=== PATIENT | female | born 1965 | race Caucasian/White ===

== ENCOUNTER 2018-09-17 04:07 | Observation (INO) | payer OTHER ==
--- NOTE | 2018-09-17 04:39 | EDPHY ---
H & P Stated Complaint: chest pain Time Seen by Provider: 09/17/18 04:18 HPI/ROS: Chief Complaint: Chest pain HPI: 52-year-old woman with a history of coronary artery atherosclerosis based on CT heart scans is presenting with chest pain which woke her 3 and 0.5 hr prior to arrival. Patient states she has been waxing waning pain in her central chest radiating to her left side of her chest on morning. She has had similar episodes in the past. She had a negative stress test with Dr. Dias about 9 years ago. She has a strong family history of coronary artery disease and a father of sudden cardiac in his early 50s. She is currently pain-free. No nausea or vomiting. Pain is not pleuritic. No recent immobility. At worst is about a 7/10. ROS: 10 systems were reviewed and were negative except those elements noted in the HPI. PMH: Hyperlipidemia, coronary artery disease Social History: No smoking, no alcohol, no recreational drug use Family History: First-degree relatives with coronary artery disease at a young age Physical Exam: Gen: Awake, Alert, No Distress HEENT: Nose: no rhinorrhea Eyes: PERRLA, EOMI Mouth: Moist mucosa Neck: Supple, no JVD Chest: nontender, lungs clear to auscultation Heart: S1, S2 normal, no murmur Abd: Soft, non-tender, no guarding Back: no CVA tenderness, no midline tenderness Ext: no edema, non-tender Skin: no rash Neuro: CN II-XII intact, Sensation grossly intact, Strength 5/5 in bilateral upper and lower extremities - Personal History LMP (Females 10-55): Post Menopausal Current Tetanus Diphtheria and Acellular Pertussis (TDAP): Yes - Medical/Surgical History Hx Asthma: No Hx Chronic Respiratory Disease: No Hx Diabetes: No Hx Cardiac Disease: Yes Hx Renal Disease: No Hx Cirrhosis: No Hx Alcoholism: No Hx HIV/AIDS: No Hx Splenectomy or Spleen Trauma: No Other PMH: atleriosos sclerosis - Social History Smoking Status: Never smoked Constitutional: Initial Vital Signs Temperature (C) 36.5 C 09/17/18 04:11 Heart Rate 74 09/17/18 04:11 Respiratory Rate 20 09/17/18 04:11 Blood Pressure 154/93 H 09/17/18 04:11 O2 Sat (%) 99 12/10/18 04:11 O2 Delivery Mode Room Air Allergies/Adverse Reactions: No Known Allergies Allergy (Unverified 09/17/18 04:10) Home Medications: Medication Instructions Recorded Atorvastatin Calcium 09/17/18 Coq10 09/17/18 Medical Decision Making - Diagnostics EKG Interpretation: ECG time 4:22 a.m., sinus rhythm with a rate of 66, normal axis, normal intervals, no acute ST or T-wave changes. Impression: Normal ECG. ED Course/Re-evaluation: 52-year-old woman with a history of coronary atherosclerotic disease and family history of sudden cardiac presenting with chest pain this morning. Pain is resolved. ECG is normal. Troponin is 0. I have discussed with Dr. Daley , cardiology. He has recommended the patient be admitted for further evaluation and they will consult on her later today to discuss options for further evaluation. I have discussed with Dr. Aviva Castro, hospitalist. She will admit to her service for further evaluation. - Data Points Laboratory Results: Laboratory Results 09/17/18 04:40 09/17/18 04:40 09/17/18 09/17/18 09/17/18 04:43 04:40 04:40 WBC 4.85 10^3/uL 10^3/uL (3.80-9.50) RBC 4.84 10^6/uL 10^6/uL (4.18-5.33) Hgb 15.0 g/dL g/dL (12.6-16.3) Hct 42.3 % % (38.0-47.0) MCV 87.4 fL fL (81.5-99.8) MCH 31.0 pg pg (27.9-34.1) MCHC 35.5 g/dL g/dL (32.4-36.7) RDW 12.1 % % (11.5-15.2) Plt Count 172 10^3/uL 10^3/uL (150-400) MPV 9.4 fL fL (8.7-11.7) Neut % (Auto) 43.6 % % (39.3-74.2) Lymph % (Auto) 47.0 % H % (15.0-45.0) [place] % (Auto) 7.2 % % (4.5-13.0) Eos % (Auto) 1.4 % % (0.6-7.6) Baso % (Auto) 0.8 % % (0.3-1.7) Nucleat RBC Rel Count 0.0 % % (0.0-0.2) Absolute Neuts (auto) 2.11 10^3/uL 10^3/uL (1.70-6.50) Absolute Lymphs (auto) 2.28 10^3/uL 10^3/uL (1.00-3.00) Absolute Monos (auto) 0.35 10^3/uL 10^3/uL (0.30-0.80) Absolute Eos (auto) 0.07 10^3/uL 10^3/uL (0.03-0.40) Absolute Basos (auto) 0.04 10^3/uL 10^3/uL (0.02-0.10) Absolute Nucleated RBC 0.00 10^3/uL 10^3/uL (0-0.01) Immature Gran % 0.0 % % (0.0-1.1) Immature Gran # 0.00 10^3/uL 10^3/uL (0.00-0.10) Sodium 138 mEq/L mEq/L (135-145) Potassium 3.7 mEq/L mEq/L (3.5-5.2) Chloride 106 mEq/L mEq/L (97-110) Carbon Dioxide 24 mEq/l mEq/l (22-31) Anion Gap 8 mEq/L mEq/L (6-14) BUN 19 mg/dL mg/dL (7-23) Creatinine 0.7 mg/dL mg/dL (0.6-1.0) Estimated GFR > 60 Glucose 106 mg/dL H mg/dL (70-100) Calcium 9.1 mg/dL mg/dL (8.5-10.4) POC Troponin I 0.00 ng/mL ng/mL (0.00-0.08) Medications Given: Discontinued Medications Aspirin (Aspirin) 243 mg PO EDNOW ONE Stop: 09/17/18 05:44 Last Admin: 09/17/18 05:46 Dose: 243 mg Point of Care Test Results: Chemistry 09/17/18 04:43 POC Troponin I 0.00 ng/mL ng/mL (0.00-0.08) Departure - Departure Disposition: [facility] Inpatient Acute Clinical Impression: Chest pain Condition: Fair Referrals: Susi Roberto MD [Primary Care Provider] - As per Instructions
[2018-09-17 04:54] LABS: PLATELET COUNT 172 10^3/uL (150-400)
[2018-09-17] MEDS ORDERED: ASPIRIN 81 MG CHEWABLE TAB PO ONE (05:43)
[2018-09-17] MEDS ORDERED: NITROGLYCERIN 0.4 MG BTL SL PRN (06:01)
[2018-09-17] MEDS ORDERED: ONDANSETRON 4 MG/2 ML VIAL IVP PRN (06:01)
[2018-09-17] MEDS ORDERED: ACETAMINOPHEN 325 MG TAB PO PRN (06:01)
[2018-09-17] MEDS ORDERED: ONDANSETRON DISINTEGRATING 4 MG TAB PO PRN (06:01)
--- NOTE | 2018-09-17 06:44 | CPEKG ---
Test Reason : OPEN Blood Pressure : / mmHG Vent. Rate : 066 BPM Atrial Rate : 066 BPM P-R Int : 143 ms QRS Dur : 092 ms QT Int : 399 ms P-R-T Axes : 085 018 066 degrees QTc Int : 418 ms Sinus rhythm Confirmed by Miles Carl ([id number]) on 09/17/2018 6:44:16 AM Referred By: Confirmed By:Miles Carl
[2018-09-17] MEDS ORDERED: METOPROLOL TARTRATE 25 MG TAB PO ONE (06:57)
--- NOTE | 2018-09-17 07:04 | PDGENHP ---
History and Physical - Chief Complaint chest pain - History of Present Illness 52 yo female with h/o CAD by CT coronary artery imaging, prior hypertension hx with PIH, and family history of premature heart disease presents to ED with chest pain. She went for a walk/run with her partner yesterday and felt chest pressure and pain during exertion. This resolved with rest. She then awoke at 0100 this morning with recurrent chest pressure. She was able to fall back to sleep, but at 0300, the pain woke up her up again and was severe. She described this as a pressure and tightness, like someone was sitting on her chest. The pain radiated to her left arm, neck and left jaw. She felt nausea and SOB, but denied diaphoresis. This brought her to the ED and her pain is nearly resolved upon arrival. She is a non-smoker, no h/o diabetes. She takes atorvastatin due to her coronary plaque, but has had normal cholesterol in the past. She is not currently treated for hypertension. She is followed by Dr. Dias at [facility]. Prior workup has included a nuclear medicine stress test which was reportedly normal. In 05/2016, she had a low risk exercise treadmill stress test. In 06/2018, she had a CT coronary artery calcium score of 346, correlating with moderate non-occlusive CAD. In the ED, her initial troponin is negative. Her EKG is non-ischemic. History Information - Allergies/Home Medication List Allergies/Adverse Reactions: No Known Allergies Allergy (Unverified 09/17/18 04:10) Home Medications: Atorvastatin Calcium 09/17/18 [Last Taken Unknown] Coq10 09/17/18 [Last Taken Unknown] I have personally reviewed and updated: family history, medical history, social history, surgical history - Past Medical History coronary artery disease, hypertension - Surgical History Reports: no pertinent surgical hx - Family History Positive for: diabetes type II, father with history of CAD younger than 55, hypertension Additional family history: father of AK at age 51 - Social History Smoking Status: Never smoked Alcohol Use: None Drug Use: None Additional social history: She is active, does yoga. Review of Systems Review of Systems: ROS: 10pt was reviewed & negative except for what was stated in HPI & below Physical Exam Physical Exam: Temp Pulse Resp BP Pulse Ox 36.5 C 69 16 126/76 H 95 09/17/18 04:11 09/17/18 05:40 09/17/18 05:40 09/17/18 05:40 09/17/18 05:40 Constitutional: no apparent distress Eyes: PERRL Ears, Nose, Mouth, Throat: moist mucous membranes Cardiovascular: regular rate and rhythym, no murmur, rub, or gallop Respiratory: no respiratory distress, clear to auscultation Gastrointestinal: normoactive bowel sounds, soft, non-tender abdomen Skin: warm Musculoskeletal: full muscle strength Neurologic: AAOx3 Psychiatric: interacting appropriately Lab Data & Imaging Review 09/17/18 04:40 09/17/18 04:40 WBC 4.85 10^3/uL (3.80-9.50) 09/17/18 04:40 RBC 4.84 10^6/uL (4.18-5.33) 09/17/18 04:40 Hgb 15.0 g/dL (12.6-16.3) 09/17/18 04:40 Hct 42.3 % (38.0-47.0) 09/17/18 04:40 MCV 87.4 fL (81.5-99.8) 09/17/18 04:40 MCH 31.0 pg (27.9-34.1) 09/17/18 04:40 MCHC 35.5 g/dL (32.4-36.7) 09/17/18 04:40 RDW 12.1 % (11.5-15.2) 09/17/18 04:40 Plt Count 172 10^3/uL (150-400) 09/17/18 04:40 MPV 9.4 fL (8.7-11.7) 09/17/18 04:40 Neut % (Auto) 43.6 % (39.3-74.2) 09/17/18 04:40 Lymph % (Auto) 47.0 % (15.0-45.0) H 09/17/18 04:40 [place] % (Auto) 7.2 % (4.5-13.0) 09/17/18 04:40 Eos % (Auto) 1.4 % (0.6-7.6) 09/17/18 04:40 Baso % (Auto) 0.8 % (0.3-1.7) 09/17/18 04:40 Nucleat RBC Rel Count 0.0 % (0.0-0.2) 09/17/18 04:40 Absolute Neuts (auto) 2.11 10^3/uL (1.70-6.50) 09/17/18 04:40 Absolute Lymphs (auto) 2.28 10^3/uL (1.00-3.00) 09/17/18 04:40 Absolute Monos (auto) 0.35 10^3/uL (0.30-0.80) 09/17/18 04:40 Absolute Eos (auto) 0.07 10^3/uL (0.03-0.40) 09/17/18 04:40 Absolute Basos (auto) 0.04 10^3/uL (0.02-0.10) 09/17/18 04:40 Absolute Nucleated RBC 0.00 10^3/uL (0-0.01) 09/17/18 04:40 Immature Gran % 0.0 % (0.0-1.1) 09/17/18 04:40 Immature Gran # 0.00 10^3/uL (0.00-0.10) 09/17/18 04:40 Sodium 138 mEq/L (135-145) 09/17/18 04:40 Potassium 3.7 mEq/L (3.5-5.2) 09/17/18 04:40 Chloride 106 mEq/L (97-110) 09/17/18 04:40 Carbon Dioxide 24 mEq/l (22-31) 09/17/18 04:40 Anion Gap 8 mEq/L (6-14) 09/17/18 04:40 BUN 19 mg/dL (7-23) 09/17/18 04:40 Creatinine 0.7 mg/dL (0.6-1.0) 09/17/18 04:40 Estimated GFR > 60 09/17/18 04:40 Glucose 106 mg/dL (70-100) H 09/17/18 04:40 Calcium 9.1 mg/dL (8.5-10.4) 09/17/18 04:40 POC Troponin I 0.00 ng/mL (0.00-0.08) 09/17/18 04:43 Triglycerides 91 mg/dL (35-135) 09/17/18 05:30 Cholesterol 136 mg/dL (140-220) L 09/17/18 05:30 Cholesterol Risk Factr 0.4 (0.2-1.0) 09/17/18 05:30 LDL Cholesterol, Calc 65 mg/dL (80-100) L 09/17/18 05:30 LDL Risk Factor 0.5 (0.2-1.0) 09/17/18 05:30 VLDL Cholesterol 18 mg/dL (8-25) 09/17/18 05:30 Non-HDL Cholesterol 83 mg/dL (90-129) L 09/17/18 05:30 HDL Cholesterol 53 mg/dL (40-85) 09/17/18 05:30 LDL/HDL Ratio 1.22 RATIO (1.00-3.22) 09/17/18 05:30 Cholesterol/HDL Ratio 2.57 RATIO (1.00-4.44) 09/17/18 05:30 Visualized and Interpreted Chest x-ray results: Yes Chest X-Ray results: normal Visualized and Interpreted EKG results: Yes EKG Interpretation: Positive for: normal sinsus rhythm Assessment & Plan Assessment: Chest pain (Acute) - Some concern for unstable angina with symptoms occurring both with exertion and at rest. HEART score 4 based on concerning story, age and risk factors (father of AK age 51, h/o htn). Coronary artery calcium score 346 in 06/2018, suggesting moderate CAD is likely. Trop neg, ekg non- ischemic. She warrants inpt risk stratification. -trend trop -rpt ekg reviewed, no evolutionary changes -ASA, statin, BB -prn nitro, morphine for pain, currently pain free -will keep NPO as she may warrant angiogram, cardiology will consult to determine plan for risk stratification Full code Dispo - obs
[2018-09-17] MEDS ORDERED: ATORVASTATIN CALCIUM 40 MG TAB PO SCH (09:00)
[2018-09-17] MEDS ORDERED: TEMAZEPAM 15 MG CAP PO PRN (09:43)
[2018-09-17] MEDS ORDERED: ASPIRIN EC 325 MG TAB PO ONE (09:43)
[2018-09-17] MEDS ORDERED: DIAZEPAM 5 MG TAB PO ONE (09:43)
[2018-09-17] MEDS ORDERED: FAMOTIDINE 20 MG TAB PO ONE ×2 (09:43→14:43)
[2018-09-17] MEDS ORDERED: diphenhydrAMINE 25 MG CAP PO ONE (09:43)
--- NOTE | 2018-09-17 09:43 | PDPROPOC ---
Sedation Plan of Care Sedation Plan of Care: vital signs stable, mental status noted, patient educated of risks, benefits, alternatives, patient can tolerate sedation ASA Classification: ASA 2 Planned drugs: fentanyl, midazolam Mallampati Score: Class 1 Mallampati Reference Image: Patient passed 3-3-2 rule?: Yes
--- NOTE | 2018-09-17 09:47 | PDCARCONS ---
Cardiology Consult Reason for Consult: Chest pain Chief Complaint: Chest pain Requesting Physician: David History of Present Illness: 52-year-old female known to me history of coronary disease diagnosed by imaging several week 2 month history of exertional chest pressure culminating last evening with acute onset substernal chest pressure described as searing in nature radiating to the jaw and left arm associated with shortness of breath and anxiety. Patient arrived at the emergency department 1:00 a.m.. Initial EKG was normal. Initial troponin was unremarkable. I am asked to see this morning. She continues to have off and on chest discomfort. She has known coronary disease by imaging. She has a strong family history of early heart disease with fatal outcomes. She denies PND orthopnea. She has had no syncope or near syncope. She has had no palpitations. History Information - Allergies/Home Medication List Allergies/Adverse Reactions: No Known Allergies Allergy (Unverified 09/17/18 04:10) Home Medications: Aspirin [Aspirin 81mg (*)] 81 mg PO DAILY 09/17/18 [Last Taken 09/16/18] Atorvastatin Calcium [Lipitor 10 mg (*)] 10 mg PO HS 09/17/18 [Last Taken ] Herbals/Supplements -Info Only 1 ea PO DAILY 09/17/18 [Last Taken 09/16/18] Multivitamins [Multivitamin (*)] 1 each PO DAILY 09/17/18 [Last Taken 09/16/18] I have personally reviewed and updated: family history, medical history, social history, surgical history Past Medical History: - Social History Smoking Status: Never smoked Alcohol Use: None Drug Use: None Physical Exam Physical Exam: Temp Pulse Resp BP Pulse Ox 36.6 C 69 14 131/80 H 99 09/17/18 08:00 09/17/18 08:00 09/17/18 08:00 09/17/18 08:00 09/17/18 08:00 Constitutional: no apparent distress Eyes: PERRL Ears, Nose, Mouth, Throat: moist mucous membranes Cardiovascular: regular rate and rhythym, no murmur, rub, or gallop, No systolic murmur Peripheral Pulses: 1+: carotid (R), carotid (L), femoral (R), femoral (L), dorsalis-pedis (R), dorsalis-pedis (L) Respiratory: no respiratory distress, no rales or rhonchi Gastrointestinal: normoactive bowel sounds, soft, non-tender abdomen Genitourinary: no bladder fullness Skin: warm Musculoskeletal: full muscle strength Neurologic: AAOx3, sensation intact bilaterally, No facial droop Psychiatric: interacting appropriately Lymph, Heme, Immunologic: no cervical LAD, no supraclavicular LAD Lab and Imaging 09/17/18 04:40 09/17/18 04:40 WBC 4.85 10^3/uL (3.80-9.50) 09/17/18 04:40 RBC 4.84 10^6/uL (4.18-5.33) 09/17/18 04:40 Hgb 15.0 g/dL (12.6-16.3) 09/17/18 04:40 Hct 42.3 % (38.0-47.0) 09/17/18 04:40 MCV 87.4 fL (81.5-99.8) 09/17/18 04:40 MCH 31.0 pg (27.9-34.1) 09/17/18 04:40 MCHC 35.5 g/dL (32.4-36.7) 09/17/18 04:40 RDW 12.1 % (11.5-15.2) 09/17/18 04:40 Plt Count 172 10^3/uL (150-400) 09/17/18 04:40 MPV 9.4 fL (8.7-11.7) 09/17/18 04:40 Neut % (Auto) 43.6 % (39.3-74.2) 09/17/18 04:40 Lymph % (Auto) 47.0 % (15.0-45.0) H 09/17/18 04:40 [place] % (Auto) 7.2 % (4.5-13.0) 09/17/18 04:40 Eos % (Auto) 1.4 % (0.6-7.6) 09/17/18 04:40 Baso % (Auto) 0.8 % (0.3-1.7) 09/17/18 04:40 Nucleat RBC Rel Count 0.0 % (0.0-0.2) 09/17/18 04:40 Absolute Neuts (auto) 2.11 10^3/uL (1.70-6.50) 09/17/18 04:40 Absolute Lymphs (auto) 2.28 10^3/uL (1.00-3.00) 09/17/18 04:40 Absolute Monos (auto) 0.35 10^3/uL (0.30-0.80) 09/17/18 04:40 Absolute Eos (auto) 0.07 10^3/uL (0.03-0.40) 09/17/18 04:40 Absolute Basos (auto) 0.04 10^3/uL (0.02-0.10) 09/17/18 04:40 Absolute Nucleated RBC 0.00 10^3/uL (0-0.01) 09/17/18 04:40 Immature Gran % 0.0 % (0.0-1.1) 09/17/18 04:40 Immature Gran # 0.00 10^3/uL (0.00-0.10) 09/17/18 04:40 Sodium 138 mEq/L (135-145) 09/17/18 04:40 Potassium 3.7 mEq/L (3.5-5.2) 09/17/18 04:40 Chloride 106 mEq/L (97-110) 09/17/18 04:40 Carbon Dioxide 24 mEq/l (22-31) 09/17/18 04:40 Anion Gap 8 mEq/L (6-14) 09/17/18 04:40 BUN 19 mg/dL (7-23) 09/17/18 04:40 Creatinine 0.7 mg/dL (0.6-1.0) 09/17/18 04:40 Estimated GFR > 60 09/17/18 04:40 Glucose 106 mg/dL (70-100) H 09/17/18 04:40 Calcium 9.1 mg/dL (8.5-10.4) 09/17/18 04:40 POC Troponin I 0.00 ng/mL (0.00-0.08) 09/17/18 04:43 Triglycerides 91 mg/dL (35-135) 09/17/18 05:30 Cholesterol 136 mg/dL (140-220) L 09/17/18 05:30 Cholesterol Risk Factr 0.4 (0.2-1.0) 09/17/18 05:30 LDL Cholesterol, Calc 65 mg/dL (80-100) L 09/17/18 05:30 LDL Risk Factor 0.5 (0.2-1.0) 09/17/18 05:30 VLDL Cholesterol 18 mg/dL (8-25) 09/17/18 05:30 Non-HDL Cholesterol 83 mg/dL (90-129) L 09/17/18 05:30 HDL Cholesterol 53 mg/dL (40-85) 09/17/18 05:30 LDL/HDL Ratio 1.22 RATIO (1.00-3.22) 09/17/18 05:30 Cholesterol/HDL Ratio 2.57 RATIO (1.00-4.44) 09/17/18 05:30 Visualized and Interpreted Chest x-ray results: Yes Visualized and Interpreted imaging results: Yes Visualized and Interpreted EKG results: Yes A/P Assessment: 52-year-old female known coronary disease with exertional crescendo chest pain typical of angina with radiation to the arm and jaw now with resting pain. EKG and troponins do not suggest acute injury. Recommend diagnostic angiogram for full risk stratification followed by appropriate intervention. Continue to optimize risk factors with aggressive secondary prevention. Clinical follow-up post imaging. Risks and benefits were discussed with the patient and her . Will proceed
[2018-09-17 10:03] LABS: PLATELET COUNT 163 10^3/uL (150-400)
[2018-09-17 10:11] LABS: INR 1.09 (0.83-1.16); PROTIME(PATIENT) 14.3 SEC (12.0-15.0)
[2018-09-17] MEDS ORDERED: LIDOCAINE 1% 300 MG/30 ML SDV ONE (10:36)
[2018-09-17] MEDS ORDERED: fentaNYL 100 MCG/2 ML INJ ONE (10:37)
[2018-09-17] MEDS ORDERED: MIDAZOLAM 2 MG/2 ML VIAL ONE (10:37)
[2018-09-17] MEDS ORDERED: HEPARIN 10,000 UNIT/10 ML MDV (1,000 UNIT/ML) ONE (10:37)
[2018-09-17] MEDS ORDERED: VERAPAMIL 5 MG/2 ML VIAL ONE (10:37)
[2018-09-17] MEDS ORDERED: IOPAMIDOL (ISOVUE-370) 150 ML BTL IV ONE (10:37)
--- NOTE | 2018-09-17 11:45 | PDDXCAT ---
Diagnostic Cath Note - . Date: 09/17/18 Drop Crew Laborer: Arun Indication: Class III or IV angina, which improves to class I/II w medical therapy - Procedure Access: right wrist Procedure: left heart catheterization, coronary angiography - Materials Left Heart Cath size: 5F Left Heart Cath materials: pigtail, other ([place]) - Findings-Left Heart Catheterization LM: Separate ostia for each coronary artery LAD: Unique ostia. Unobstructed LCX: Unique ostia. Unobstructed RCA: Dominant: Unobstructed EDP: 10 mm of mercury LVEF: 65 Wall motion: Normal Complications: None Estimated blood loss: <50ml Closure method: TR Band Assessment: Angiographically normal coronary arteries. Normal left ventricular systolic function with normal filling pressures. Plan: Aggressive secondary prevention clinical follow-up Patient Problems: Problems Problem Status Onset Chest pain Acute
--- NOTE | 2018-09-17 12:08 | ASMTCMCOM ---
CM Note CM Note Notes: 52yo female admitted for CP She has a Hx of CAD and HTN. She asked about how much an angiogram might cost? She has a [employer] plan with a high deductable. After talking with our Traveling Operator, this CM was able to answer her questions. Patient did have the angiogram and may be managed medically. No discharge needs anticipated. Date Signed: 09/17/2018 12:08 PM Electronically Signed By:Griselda Wen LCSW
--- NOTE | 2018-09-17 15:02 | GDS ---
ALL DIAGNOSES: 1. Chest pain. 2. History of coronary artery disease, on secondary prevention. 3. Suspected gastroesophageal reflux disease. HOSPITAL COURSE: A 52-year-old female admitted with exertional chest pain. Because of her history, as well as a high calcium score in the past, she underwent a cardiac catheterization. This was ryan l. Suspect that this is related to GERD. Recommended that she try Pepcid or Zantac p.r.n. PE was c onsidered, though without hypoxia or tachycardia, this is very unlikely. She also has significant st ress in her life right now. She is discharged in stable condition. /[id number]/MODL
--- NOTE | 2018-09-17 15:07 | ASDISCHSUM ---
Discharge Information Plan Status:Home with No Needs Medically Cleared to Leave:09/16/2018 Discharge Date:09/16/2018 CM D/C Disposition:Home, Routine, Self-Care ADT D/C Disposition:Home, Routine, Self-Care Projected Discharge Date:09/17/2018 04:00 PM Transportation at D/C:Family Discharge Delay Reason: Follow-Up Date:09/17/2018 04:00 PM Discharge Slot:2 - 12:01 pm - 18:00 pm Final Diagnosis:CP Placement Information Patient Contact Information Contact Name:ARABELLA Relationship: Address:[address] [place] [address] City:[place] Alternate Phone: [facility]/Zip Code:[place] [address] Email: Financial Information Financial Class:Collactive Primary Plan Desc:FERNANDO VILLEGAS Primary Plan Number:[id number] Secondary Plan Desc: Secondary Plan Number: Assessment Information [facility] CM Progress Note CM Note CM Note Notes: 52yo female admitted for CP She has a Hx of CAD and HTN. She asked about how much an angiogram might cost? She has a [employer] plan with a high deductable. After talking with our Stove Tender, this CM was able to answer her questions. Patient did have the angiogram and may be managed medically. No discharge needs anticipated. Date Signed: 09/17/2018 12:08 PM Electronically Signed By:Griselda Wen LCSW Case Management Discharge Plan Note Case Management Discharge Discharge Order Complete? Answers: Yes Patient to Obtain Answers: Independently Medications Transportation Arranged Answers: Family/Friends Family Notified Answers: Yes Notes: her partner to transpor t Discharge Comments Notes: Patient has been discharged home. No discharge needs. Date Signed: 09/17/2018 03:05 PM Electronically Signed By:Griselda Wen LCSW Intervention Information
[2018-09-17 16:41] VITALS: BP 110/76
== END 2018-09-17 17:05 | disposition home or self-care (01) ==
LOC: F2N 08:22
PROVIDERS: ADMIT Hospitalist; ATTEND Hospitalist
PROC: B2111ZZ Fluoroscopy of Multiple Coronary Arteries using Low Osmolar Contrast (ICD-10-PCS; principal; 2018-09-17)
PROC: 4A023N7 Measurement of Cardiac Sampling and Pressure, Left Heart, Percutaneous Approach (ICD-10-PCS; principal; 2018-09-17)
PROC: B2151ZZ Fluoroscopy of Left Heart using Low Osmolar Contrast (ICD-10-PCS; principal; 2018-09-17)
DX: R07.9 Chest pain, unspecified (principal); Z86.79 Personal history of other diseases of the circulatory system
CPT/HCPCS: 84484-PO; C1769; G0378; J1644; J2250; J3010; Q9967